=== PATIENT | female | born 1940 | race Caucasian/White ===

== ENCOUNTER → 2017-02-07 | Outpatient (CLI) | payer MEDICARE ==
[~2017-02-07] MED LIST: APIX5TAB2 PO; ASP325T PO; CALC-404 PO; FLEC100T PO; FLECAINIDE; GLUC1TAB60 PO; METO-270 PO; METO5AMP2 IV; MULT-608 PO; OMEG1CAP51 PO; PANT40TA2 PO; PROBIOTIC1 EACH PO; RIVA20TA4 PO; TRIA16.5 NS; WRF2T PO; WRF5T PO
--- OUTSIDE RECORDS SUMMARY | 2017-02-07 11:21 | XMS REPORT | Continuity of Care Document ---
Author Author [facility] Organization [facility] Address Unknown Phone Unavailable Care Team Providers Care Timber Management Technician Name Role Phone Karissa Rock PCP [phone] Source Comments Some departments are not documenting in the electronic medical record. If you do not see the information that you expected, contact Release of Information in the Health Information Management department at [phone] for further assistance in locating additional records.[facility] Active Allergies and Adverse Reactions No Known Allergies Current Medications Prescription Sig. Disp. Refills Start End Date Status Date MULTI-VITAMIN PO Take 1 Tab by mouth Active Daily. GLUC ABDULLAHI/CHONDRO ABDULLAHI A/VIT Take 1 Tab by mouth twice Active C/MN (GLUCOSAMINE 1500 daily. COMPLEX PO) Calcium-Cholecalciferol Take 1 Tab by mouth Twice Active (D3) (CALCIUM 600 + D) Daily. 600-125 mg-unit PO Tab hzhpa-2a-opy-epa-fish oil Take 1 Cap by mouth Active 1,000-1,400 mg cpDR daily. flecainide (TAMBOCOR) 100 TAKE ONE TABLET BY MOUTH 180 Tab 3 03/05/20 Active mg tablet TWICE A DAY 16 XARELTO 20 mg tab tablet TAKE ONE TABLET BY MOUTH 90 Tab 3 03/05/20 Active DAILY WITH DINNER 16 metoprolol (LOPRESSOR) 25 TAKE 1/2 TABLET BY MOUTH 90 Tab 3 03/05/20 Active mg tablet TWO TIMES A DAY 16 Active Problems Problem Noted Date Screening for cardiovascular condition 01/16/2012 Overview: A. 01/06/12. Myoview Stress, Dr Covington. : EF 66%. Baseline A-Fib persisted throughout the test. No significant ischemia or infarction on SPECT images. Gated images unreliable in light of underlying A fib. S/P cardiac pacemaker procedure 07/02/2011 Hyperlipidemia 07/02/2011 Pulmonary hypertension (HCC) 07/02/2011 Overview: A. 05/20/11. Documented on problem list of OV note by primary repairer controller tester, Dr Poe. Estimated PAP 40 mmHg. Aortic valve sclerosis 07/02/2011 Overview: A. 05/20/11. Documented on problem list of OV note by primary repairer controller tester, Dr Covington. No stenosis, mild aortic regurgitation. Bradycardia 01/18/2011 Paroxysmal atrial fibrillation (HCC) 08/27/2010 Overview: a. 08/22/10: Pt reported intermittent, rapid, irregular heart rate, some episodes lasting up to 1 hr. b. 08/23/10: 24 HR Holter placed by Dr Covington. Underlying rhythm sinus with multiple episodes of A Fib. Sinus harpal, HR 38, at 3 am, APC's and VPC's noted. c. 08/26/10: ER eval for rapid irregular rhythm. EKG documents A fib. Converted spontaneously prior to discharge. d. 08/27/10: Started on Warfarin by [facility] and Lopressor 12.[address] Covington. Pt advised to check pulse daily for bradycardia. E. 05/20/11. Pt requests anticoagulation management handled by MAC. Atrial flutter (HCC) 08/02/2010 Overview: A. 08/02/10: Atrial Flutter RFA--CavoTricuspid (Sub eustachian) Isthmus Ablation, SVT Ablation. 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 Respiratory Rate - - Height 1.74 m (5' 8.5") 08/28/2016 9:05 AM CDT Weight 64.864 kg (143 lb) 08/28/2016 9:05 AM CDT Body Mass Index 21.42 08/28/2016 9:05 AM CDT Oxygen Saturation 100% 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 Plan of Care Date Type Specialty Providers Description 03/04/2017 Appointment Cardiology Fidel Palm MD [address] [place] [address] [phone] (Fax) 03/04/2017 Appointment Cardiology Fidel Palm MD [address] [place] [address] [phone] (Fax) 06/04/2017 Appointment Cardiology Fidel Palm MD [address] [facility] [address] [place] [address] [phone] (Fax) Health Maintenance Due Date Last Done Comments Physical (Comprehensive) 1947 Exam Pertussis Vaccine 1952 Tetanus Vaccine 1958 Colorectal Cancer 1991 Screening Shingles Vaccine 2001 Osteoporosis Screening 2006 Prevnar/Pneumovax (#1) 2006 Influenza Vaccine 07/25/2017 Results from Last 3 Months DEVICE EVALUATION - REMOTE PPM (12/06/2016 11:47 AM) Component Value Range Generator Model # ADAPTA L ADDRL1 Generator Serial # [id number] Generator Implnat Date 01/18/2011 ALIX/EOL Indicator VVI/VOO 65 bpm Generator Funeral Driver Medtronic Generator Investigational No Wireless Generator No Device Type DDD-PM Atrial Lead Model # CAPSUREFIX NOVUS 5076-52cm Atrial Lead Serial # [id number] Atrial Lead Implant Date 01/18/2011 Atrial Lead Diaph. 10 Stimulation Atrial Lead Funeral Driver Medtronic Atrial Lead No Investigational Atrial Lead Fixation active fixation Atrial Lead Location right atrial appendage Atrial Lead Pin Connector IS1 Atrial Lead Polarity Bipolar RV Lead Model # CAPSUREFIX NOVUS 5076-58cm RV Lead Serial # [id number] RV Lead Implant Date 01/18/2011 RV Lead Diaph. 10 Stimulation RV Lead Funeral Driver Medtronic RV Lead Investigational No RV Lead Fixation active fixation RV Lead Location RV low septum RV Lead Pin Connector ICD IS1 Device Mode AAIR-DDDR Lower Rate Limit 70 Upper Rate Limit 130 Sensor Rate Limit 130 Pace AV Delay 180 Sense AV Delay 150 VT Monitor NA Mode Switch (bpm) 150-no delay High A Rate Detect >150 bpm with no delay High V Rate Detect >150 bpm at 5 beats Mode Switch Status On Device Implanted By Nuha Covington MD ( [facility]) Pacemaker Dependant Yes Next Programming Check 02/2017 Due Next Remote Check Due 11/2016 Date of Last Remote Check 06/21/16 Date of baseline remote 04/07/13 transmission Remote Monitoring? Yes HF Patient No Date of Last Programming 08/28/16 EP Device Followed by Dr. Palm Name EP Device Followed By [facility] Device [facility] Express Transmitter Compatible Narrative Current Monitoring Period: 11/29/16 through 02/26/17 [12/06/2016 11:47:41 AM - DOE COBURN] Scheduled Carelink transmission received. Device function appears normal. Events noted since 08/28/16: Atrial: None. Ventricular: None. Please see scanned data for further review as needed. Pt is scheduled to follow up on 03/04/17 with MPE at the OP Office.
--- NOTE | 2017-02-10 14:14 | Diagnostic Imaging Report ---
EXAMINATION: Bilateral screening mammogram with a Computer Aided Detection (CAD) system. INDICATION: Screening. PERSONAL HISTORY: No current complaints stated on the questionnaire. COMPARISON: 02/06/2016. FINDINGS: The breasts are composed of heterogeneously dense parenchyma which may decrease mammographic sensitivity. There is a pacemaker in the axillary tail of the left breast. Benign-appearing calcifications are seen in the right breast. Allowing for technique and positional differences, no suspicious change is seen. IMPRESSION: Dense breasts with no definite change. ACR BI-RADS Category 2: Benign findings. Result letter will be mailed to the patient. Note: At least 10% of breast cancer is not imaged by mammography. Dictated by: Dictated on workstation # [id number]
== END ==
LOC: RAD 11:17
PROVIDERS: ATTEND Internal Medicine
DX: Z12.31 Encounter for screening mammogram for malignant neoplasm of breast (principal)
CPT/HCPCS: 77067

== ENCOUNTER → 2017-06-26 | Outpatient (CLI) | payer MEDICARE ==
[2017-06-26 09:01] LABS: MEAN PLATELET VOLUME 8.9 FL (7.4-10.4); RED BLOOD COUNT 3.8 10^6/uL (4.35-5.85); RED CELL DISTRIBUTION WIDTH 15.2 % (10.0-14.5); WHITE BLOOD COUNT 9.3 10^3/uL (4.3-11.0)
== END ==
LOC: LAB 08:48
PROVIDERS: ATTEND Internal Medicine
DX: D64.9 Anemia, unspecified (principal)
CPT/HCPCS: 36415; 85027

== ENCOUNTER → 2017-07-11 | Outpatient (CLI) | payer MEDICARE ==
[~2017-07-11] MED LIST changes: -METO-270 PO; +METO-387 PO
[2017-07-11 13:48] LABS: BASOPHILS # (AUTO) 0.1 10^3/uL (0.0-0.1); BASOPHILS % (AUTO) 1 % (0-10); EOSINOPHILS # (AUTO) 0.1 10^3/uL (0.0-0.3); EOSINOPHILS % (AUTO) 1 % (0-10); LYMPHOCYTES # (AUTO) 1.6 X 10^3 (1.0-4.0); LYMPHOCYTES % (AUTO) 22 % (12-44); MEAN CORPUSCULAR HEMOGLOBIN 28 PG (25-34); MEAN CORPUSCULAR HGB CONC 32 G/DL (32-36); MEAN CORPUSCULAR VOLUME 88 FL (80-99); MEAN PLATELET VOLUME 9.3 FL (7.4-10.4); MONOCYTES # (AUTO) 0.6 X 10^3 (0.0-1.0); MONOCYTES % (AUTO) 8 % (0-12); NEUTROPHILS # (AUTO) 4.8 X 10^3 (1.8-7.8); NEUTROPHILS % (AUTO) 68 % (42-75); PLATELET COUNT 194 10^3/uL (130-400); RED CELL DISTRIBUTION WIDTH 14.9 % (10.0-14.5); RETICULOCYTE % 0.71 % (0.50-2.40); WHITE BLOOD COUNT 7.1 10^3/uL (4.3-11.0)
[2017-07-11 14:29] LABS: ANISOCYTOSIS SLIGHT; BAND NEUTROPHILS 1 %; BASOPHILS % (MANUAL) 1 %; EOSINOPHILS % (MANUAL) 2 %; LYMPHOCYTES % (MANUAL) 25 %; NEUTROPHILS % (MANUAL) 64 %
[2017-07-15 16:25] LABS: FOLIC ACID >24.0 NG/ML (1.5-24.0); IPF LEVEL 3.1 % (0.0-7.2)
[2017-07-15 16:26] LABS: %SAT TOTAL IRON BINDING CAPIC 8 L % (15-50); TIBC 274 L UG/DL (280-380); UIBC 251 UG/DL
== END ==
LOC: LAB 13:21
PROVIDERS: ATTEND Internal Medicine
DX: D64.9 Anemia, unspecified (principal)
CPT/HCPCS: 36415; 82607; 82746; 83540; 83550; 85007; 85027; 85045; 85055

== ENCOUNTER → 2017-07-24 | Outpatient (CLI) | payer MEDICARE ==
[~2017-07-24] MED LIST changes: +IOHEXOL 350 MG/ML 100 ML (OMNIPAQUE 350) VIAL IV ONE; +METO-270 PO; -METO-387 PO; +NS 100 ML (IVPB) BAG IV ONE
--- NOTE | 2017-07-24 15:42 | Diagnostic Imaging Report ---
PROCEDURE: CT chest, abdomen, and pelvis with and without contrast. TECHNIQUE: Precontrast images were obtained of the chest, abdomen, and pelvis. Multiple contiguous axial images were obtained through the chest, abdomen, and pelvis after administration of intravenous contrast. INDICATION: Fatigue and anemia. COMPARISON: There are no previous CT examinations available for comparison. FINDINGS: The images through the thorax show that the heart size is within normal limits. There is a dual-lead pacemaker in place on the left and the pacer leads seem to be in good position. There are coronary artery calcifications evident. The aorta is not abnormally dilated, and there is no sign of dissection. There is no defect within the pulmonary arteries to indicate a pulmonary embolus. The lungs are generally clear and well aerated. There is no sign of failure, pneumonia, or pleural effusion. There is no parenchymal lung mass identified. There is no mediastinal or hilar adenopathy. The thyroid gland is unremarkable. There is no obvious breast mass. The sections through the abdomen and pelvis show that the liver is homogeneous and not enlarged. The spleen, pancreas, adrenals, kidneys, gallbladder, aorta, and inferior vena cava are unremarkable for an acute abnormality. The stomach is not well distended and consequently difficult to assess. The images through the pelvis show that there are a few fluid-filled segments of small bowel present. These are nonspecific but may be related to a mild ileus, perhaps secondary to enteritis. There is no sign of bowel obstruction. The urinary bladder is grossly unremarkable. There is no pelvic mass or free fluid collection. The bone windows show no evidence for a fracture or for a destructive lesion. IMPRESSION: 1. The fluid in the small bowel is nonspecific. This finding could be secondary to a mild ileus, perhaps related to enteritis. Clinical followup is recommended. 2. There is no acute abnormality of the chest, abdomen, or pelvis noted otherwise. 3. There is a left-sided pacemaker in place. Coronary artery calcifications are also noted. Dictated by: Dictated on workstation # [id number]
== END ==
LOC: RAD 11:36
PROVIDERS: ATTEND Internal Medicine
DX: I25.10 Atherosclerotic heart disease of native coronary artery without angina pectoris (principal); Z95.0 Presence of cardiac pacemaker; R06.00 Dyspnea, unspecified; R53.83 Other fatigue
CPT/HCPCS: 71270; 74178

== ENCOUNTER → 2017-08-04 | Outpatient (CLI) | payer MEDICARE ==
[~2017-08-04] MED LIST changes: -IOHEXOL 350 MG/ML 100 ML (OMNIPAQUE 350) VIAL IV ONE; -NS 100 ML (IVPB) BAG IV ONE
== END ==
LOC: RT 16:10
PROVIDERS: ATTEND Internal Medicine
DX: R06.00 Dyspnea, unspecified (principal)
CPT/HCPCS: 94060; 94726; 94729

== ENCOUNTER → 2018-02-26 | Outpatient (CLI) | payer MEDICARE ==
[~2018-02-26] MED LIST changes: -METO-270 PO; +METO-387 PO
--- NOTE | 2018-02-27 11:43 | Diagnostic Imaging Report ---
INDICATION: Digital mammogram bilateral screening. This study was compared to the prior exams of 02/07/2017, 02/06/16 and 02/01/2015. At this time, there are no current complaints. The current study was also evaluated with a Computer Aided Detection (CAD) system. FINDINGS: The fibroglandular tissue in both breasts is dense. This does limit the sensitivity of this exam. Overall, there does not appear to have been any significant change when compared to the prior study. No primary or secondary sign of malignancy is noted. IMPRESSION: 1. There is no radiographic evidence for malignancy. 2. The pacemaker battery pack overlying the left pectoralis muscle seen previously is again evident and no different. ACR BI-RADS Category 1: Negative. Result letter will be mailed to the patient. Note: At least 10% of breast cancer is not imaged by mammography. Dictated on workstation # [id number]
== END ==
LOC: RAD 10:37
PROVIDERS: ATTEND Nurse Practitioner
DX: Z12.31 Encounter for screening mammogram for malignant neoplasm of breast (principal)
CPT/HCPCS: 77067

== ENCOUNTER → 2019-03-11 | Outpatient (CLI) | payer MEDICARE, OTHER ==
--- NOTE | 2019-03-12 12:46 | Diagnostic Imaging Report ---
Indication: Routine screening. Comparison is made with prior mammogram from 02/26/2018 and 02/07/2017. 2-D and 3-D bilateral screening mammography was performed with CAD. Both breasts are heterogeneously dense, limiting the sensitivity of mammography. Benign calcifications in the medial right breast appear stable. No mass or malignant-appearing microcalcifications are seen. Pacemaker battery pack left axilla is again noted. Impression: BI-RADS category 2 No mammographic features suspicious for malignancy are identified. ACR BI-RADS Category 2: Benign findings. Result letter will be mailed to the patient. Note: At least 10% of breast cancer is not imaged by mammography. Dictated by: Dictated on workstation # [id number]
== END ==
LOC: RAD 15:00
PROVIDERS: ATTEND Nurse Practitioner
DX: Z12.31 Encounter for screening mammogram for malignant neoplasm of breast (principal)
CPT/HCPCS: 77067

== ENCOUNTER → 2020-05-23 | Outpatient (CLI) | payer MEDICARE ==
[~2020-05-23] MED LIST changes: -METO-387 PO; +MTP25TSR PO
--- NOTE | 2020-05-23 13:18 | Diagnostic Imaging Report ---
INDICATION: Routine screening. COMPARISON: 03/11/2019 and 02/26/2018. TECHNIQUE: 2D and 3D bilateral screening mammography was performed with CAD. FINDINGS: Both breasts are heterogeneously dense, limiting the sensitivity of mammography. The parenchymal pattern is stable. Benign calcifications are stable. No dominant mass or malignant appearing microcalcifications are seen. A pacemaker battery pack in the left axilla is noted. IMPRESSION: No mammographic features suspicious for malignancy are identified. ACR BI-RADS Category 3: Probably benign findings. Result letter will be mailed to the patient. Note: At least 10% of breast cancer is not imaged by mammography. Dictated by: Dictated on workstation # [id number]
== END ==
LOC: RAD 09:49
PROVIDERS: ATTEND Internal Medicine
DX: Z12.31 Encounter for screening mammogram for malignant neoplasm of breast (principal)
CPT/HCPCS: 77063; 77067

== ENCOUNTER → 2021-05-31 | Outpatient (CLI) | payer MEDICARE ==
--- NOTE | 2021-05-30 17:52 | HISTORY AND PHYSICAL ---
DATE OF SERVICE: PANENDOSCOPY HISTORY AND PHYSICAL HISTORY OF PRESENT ILLNESS: The patient is an 81-year-old white female referred for consideration for panendoscopy due to history of anemia. Her hemoglobin was down to 11.7 on routine blood work on the for Dr. Rock. This compares to a hemoglobin of 13.1 one year ago. She also had mild thrombocytopenia with a platelet count of 134,000. White count was normal at 7.48 thousand with normal differential. She does report occasional bright red blood per rectum over the past 6 months that she has attributed to hemorrhoids. I performed colonoscopy on her last procedure in 03/2015 at which time she had no evidence for neoplasia and no diverticular disease. She reported no problems with the procedure. She has had no melena. She is at higher risk for GI bleeding due to the need for Xarelto for past history of paroxysmal atrial flutter and apparent also history of paroxysmal atrial tachycardia. She has no known history of CVA. PAST MEDICAL HISTORY: Other medical problems included irritable bowel syndrome and hypertension. PAST SURGICAL HISTORY: She has had no surgeries in the past six years per her report, she does have a past history of total abdominal hysterectomy in 1987, bunion surgery in 1988, rhinoplasty in 1989, vaginal prolapse and rectocele repair in 12/2008 and dental implants in 2012. FAMILY HISTORY: She is not aware of any family history for colon cancer. Her mother believes she did have Her's. Father of lung cancer with history of smoking. She had one grandfather, who of gastric cancer in 1949. SOCIAL HISTORY: She is retired, secondhand smoke exposure, but no personal smoking history and no alcohol intake. REVIEW OF SYSTEMS: CONSTITUTIONAL: Denies change in weight, night sweats, chills or fever. She is fully COVID vaccinated. PULMONARY: Denies cough, chest pain, wheezing or shortness of breath. CARDIOVASCULAR: Has had no recent problems with palpitations, syncope, presyncope, orthopnea, PND, pedal edema or dyspnea on exertion. GASTROINTESTINAL: As noted in the HPI. PHYSICAL EXAMINATION: GENERAL: Reveals a pleasant white female appeared to be in no acute distress. VITAL SIGNS: Blood pressure 130/80, weight is 151 pounds, little changed from six years ago, at which time she weighed 154.6 pounds. HEENT: Unremarkable other than mild pallor. CHEST: Clear to auscultation. CARDIOVASCULAR: Reveals a regular rate and rhythm without murmur, S3 or S4. ABDOMEN: Soft, supple without mass, organomegaly or tenderness. EXTREMITIES: Reveal no cyanosis, clubbing or edema. ASSESSMENT AND PLAN: The patient is being set up for panendoscopy due to anemia and history of intermittent bright red blood per rectum. She will hold Xarelto after Wednesdays' dose with procedure scheduled for Friday with instructions on when to resume based on findings. I thank you for the referral of this pleasant lady. Job ID: [id number] DocumentID: [id number] Dictated Date: 05/30/2021 15:02:00 Freight Loader Date: 05/30/2021 15:50:18 Dictated By: LORY KENDRICK MD MTDD
--- NOTE | 2021-05-31 19:48 | Diagnostic Imaging Report ---
INDICATION: Routine screening. COMPARISON: Prior mammograms from 05/23/2020 and 03/11/2019. EXAMINATION: 2D and 3D bilateral screening mammography was performed with CAD. The current study was also evaluated with a Computer Aided Detection (CAD) system. FINDINGS: Both breasts are heterogeneously dense, limiting the sensitivity of mammography. The parenchymal pattern is stable. No mass or malignant appearing microcalcifications are seen. Axillae are unremarkable. IMPRESSION: No mammographic features suspicious for malignancy are identified. ACR BI-RADS Category 2: Benign findings. Result letter will be mailed to the patient. Note: At least 10% of breast cancer is not imaged by mammography. Dictated by: Dictated on workstation # [id number]
== END ==
LOC: RAD 14:45
PROVIDERS: ATTEND Nurse Practitioner Family
DX: Z12.31 Encounter for screening mammogram for malignant neoplasm of breast (principal)
CPT/HCPCS: 77063; 77067

== ENCOUNTER → 2021-06-05 | Outpatient (CLI) | payer MEDICARE | LOC: LABNPT 08:38 | PROVIDERS: ATTEND Internal Medicine | DX: Z20.822 Contact with and (suspected) exposure to COVID-19 (principal) | CPT/HCPCS: 87635 ==

== ENCOUNTER 2021-06-06 05:33 | Outpatient (RCR) | payer MEDICARE ==
[~2021-06-06] VITALS: Ht 172.7 cm; Wt 68.6 kg
== END 2021-06-06 12:05 | disposition home or self-care (01) ==
LOC: PREOP 05:33
PROVIDERS: ATTEND Internal Medicine
DX: Z01.818 Encounter for other preprocedural examination (principal)

== ENCOUNTER → 2021-06-06 | Outpatient (CLI) | payer MEDICARE | LOC: LABNPT 07:32 | PROVIDERS: ATTEND Internal Medicine | DX: Z53.9 Procedure and treatment not carried out, unspecified reason (principal) | CPT/HCPCS: 87635 ==

== ENCOUNTER 2021-06-08 08:55 | Day surgery (SDC) | payer MEDICARE ==
[2021-06-08] VITALS (7 sets, daily range): BP systolic 78–141; BP diastolic 52–79
[2021-06-08] MEDS ORDERED: LACTATED RINGERS 1,000 ML IV STA (09:09)
[2021-06-08] MEDS ORDERED: LACTATED RINGERS 1,000 ML IV ONE (09:11)
[2021-06-08] MEDS ORDERED: LIDOCAINE JELLY 2% 6 ML SYRINGE MM PRN (09:15)
--- NOTE | 2021-06-08 10:04 | Pre-Op Note & Conscious Sedat ---
Pre-Operative Progress Note H&P Reviewed The H&P was reviewed, patient examined and no changes noted. Date H&P Reviewed: Jun 08, 2021 Time H&P Reviewed: 10:03 Conscious Sedation Pre-Proced ASA Score 3 For ASA 3 and 4: Consider anesthesia and medical clearance. Also, for patients with a history of failed moderate sedation consider anesthesia. Airway Lungs Heart ASA score ASA 1: a normal healthy patient ASA 2: a patient with a mild systemic disease (mid diabetes, controlled hypertension, obesity ASA 3: a patient with a severe systemic disease that limits activity (angina, COPD, prior Myocardial infarction) ASA 4: a patient with an incapacitating disease that is a constant threat to life (CHF, renal failure) ASA 5: a moribund patient not expected to survive 24 hrs. (ruptured aneurysm) ASA 6: a declared brain- patient whose organs are being harvested. For emergent operations, add the letter E after the classification Mallampati Classification Grade 2 Sedation Plan Analgesia, Amnesia, Plan communicated to team members, Discussed options with patient/fam, Discussed risks with patient/fam The patient is an appropriate candidate to undergo the planned procedure, sedation, and anesthesia. The patient immediately re-assessed prior to indication. LORY KENDRICK MD Jun 08, 2021 10:04
[2021-06-08] MEDS ORDERED: PROPOFOL INJECTION 50 ML IV ONE (10:24)
--- NOTE | 2021-06-08 12:23 | Anesthesia-General Post-Op ---
MAC Patient Condition Mental Status/LOC: Same as Preop Cardiovascular: Satisfactory Nausea/Vomiting: Absent Respiratory: Satisfactory Pain: Controlled Complications: Absent Post Op Complications Complications None Follow Up Care/Instructions Patient Instructions None needed. Anesthesiology Discharge Order Discharge Order Patient is doing well, no complaints, stable vital signs, no apparent adverse anesthesia problems. No complications reported per nursing. CASSANDRA DUGAN CRNA Jun 08, 2021 12:23
--- NOTE | 2021-06-08 16:27 | OPERATIVE REPORT ---
DATE OF SERVICE: PANENDOSCOPY SUMMARY Done for evaluation of iron deficiency anemia and occult positive blood. History of intermittent bright red blood per rectum. The patient was placed in the left lateral decubitus position. The endoscope was inserted in the oral cavity and under direct visualization, esophagus was intubated. Endoscope was passed down the esophagus through the stomach and then second portion of the duodenum. Careful inspection was made as the endoscope was withdrawn. FINDINGS: The proximal, mid and distal esophagus were unremarkable. There was no evidence for erosive esophagitis or Her's change. A small hiatal hernia is present. The cardia of the stomach was unremarkable. There are some patchy areas of 1 x 2 mm erythema involving a fair amount of the dependent portion of the fundus of the stomach, no ulceration was noted. No blood was noted in the fundus. Biopsies obtained and submitted for histopathology and Helicobacter evaluation. The pylorus and pyloric channel were unremarkable. Along the superior aspect of the duodenal bulb just distal to the pylorus, there was a small area of irritation and with a small amount of blood. There was no evidence for ulceration and did not have a typical appearance of vascular malformation. It was biopsied, cauterized and submitted for histopathology. The remainder of the duodenal bulb and second portion as well as proximal third portion of the duodenum were unremarkable with no other vascular appearing malformations or evidence for duodenitis. ASSESSMENT: 1. There was small area, inflammatory in appearance measuring about 3 x 4 mm in size involving the superior aspect of the duodenal bulb just distal to the pylorus with literally one drop of blood and no evidence for significant bleeding in the upper GI tract. It was biopsied, cauterized and submitted for histopathology. 2. There are some patchy areas of erythema confined to the dependent portion of the fundus compatible with gastritis. Biopsies were obtained and submitted for Helicobacter and histopathology. Small hiatal hernia was present without evidence for erosive esophagitis or Her's. We then proceeded with colonoscopy. DESCRIPTION OF PROCEDURE: Prior to undergoing colonoscopy, digital rectal evaluation was performed. Anal sphincter tone was normal. Perianal reflexes intact. No abnormalities were noted on digital inspection of anal canal or distal rectal vault. The colonoscope was then inserted into the rectum and under direct visualization advanced to cecum. The cecum was identified by identification of the ileocecal valve and cecal strap as well as appendiceal orifice. Photographic documentation was obtained. Careful inspection was made as colonoscope was withdrawn. Quality of prep was good. FINDINGS: One small grade I internal hemorrhoid was noted, nonthrombosed. No evidence for external hemorrhoids were noted. Several 1 to 2 mm hyperplastic appearing polyps were noted in the rectum. No other rectal abnormalities were noted. The sigmoid colon, descending colon, splenic flexure, transverse colon, hepatic flexure, ascending colon and cecum were unremarkable with no evidence for blood in the lower GI tract. ASSESSMENT: One small grade I, nonthrombosed internal hemorrhoid was noted. Several 1 to 2 mm hyperplastic appearing polyps were noted. Considering the patient's age, risk of removal, especially in an individual on blood thinning therapy outweighs the potential benefits, so they were left. She was advised to hold Xarelto for now. She has an appointment on the with Dr. Palm at and was advised to bring up the risk/benefit ratio. She is going to be at slightly higher risk for GI bleeding on anticoagulant therapy. If she is deemed to be of moderate to high risk for future stroke from GI perspective would certainly place her back on Xarelto or if no contraindications consider switch to Eliquis due to lower risk of GI bleeding. Job ID: [id number] DocumentID: [id number] Dictated Date: 06/08/2021 11:57:31 Gravel Inspector Date: 06/08/2021 16:26:27 Dictated By: LORY KENDRICK MD [facility]issa
--- NOTE | 2021-06-11 12:58 | HISTORY AND PHYSICAL ---
DATE OF SERVICE: PANENDOSCOPY HISTORY AND PHYSICAL HISTORY OF PRESENT ILLNESS: The patient is an 81-year-old white female referred for consideration for panendoscopy due to history of anemia. Her hemoglobin was down to 11.7 on routine blood work on the for Dr. Rock. This compares to a hemoglobin of 13.1 one year ago. She also had mild thrombocytopenia with a platelet count of 134,000. White count was normal at 7.48 thousand with normal differential. She does report occasional bright red blood per rectum over the past 6 months that she has attributed to hemorrhoids. I performed colonoscopy on her last procedure in 03/2015 at which time she had no evidence for neoplasia and no diverticular disease. She reported no problems with the procedure. She has had no melena. She is at higher risk for GI bleeding due to the need for Xarelto for past history of paroxysmal atrial flutter and apparent also history of paroxysmal atrial tachycardia. She has no known history of CVA. PAST MEDICAL HISTORY: Other medical problems included irritable bowel syndrome and hypertension. PAST SURGICAL HISTORY: She has had no surgeries in the past six years per her report, she does have a past history of total abdominal hysterectomy in 1987, bunion surgery in 1988, rhinoplasty in 1989, vaginal prolapse and rectocele repair in 12/2008 and dental implants in 2012. FAMILY HISTORY: She is not aware of any family history for colon cancer. Her mother believes she did have Her's. Father of lung cancer with history of smoking. She had one grandfather, who of gastric cancer in 1949. SOCIAL HISTORY: She is retired, secondhand smoke exposure, but no personal smoking history and no alcohol intake. REVIEW OF SYSTEMS: CONSTITUTIONAL: Denies change in weight, night sweats, chills or fever. She is fully COVID vaccinated. PULMONARY: Denies cough, chest pain, wheezing or shortness of breath. CARDIOVASCULAR: Has had no recent problems with palpitations, syncope, presyncope, orthopnea, PND, pedal edema or dyspnea on exertion. GASTROINTESTINAL: As noted in the HPI. PHYSICAL EXAMINATION: GENERAL: Reveals a pleasant white female appeared to be in no acute distress. VITAL SIGNS: Blood pressure 130/80, weight is 151 pounds, little changed from six years ago, at which time she weighed 154.6 pounds. HEENT: Unremarkable other than mild pallor. CHEST: Clear to auscultation. CARDIOVASCULAR: Reveals a regular rate and rhythm without murmur, S3 or S4. ABDOMEN: Soft, supple without mass, organomegaly or tenderness. EXTREMITIES: Reveal no cyanosis, clubbing or edema. ASSESSMENT AND PLAN: The patient is being set up for panendoscopy due to anemia and history of intermittent bright red blood per rectum. She will hold Xarelto after Wednesdays' dose with procedure scheduled for Friday with instructions on when to resume based on findings. I thank you for the referral of this pleasant lady. Job ID: [id number] DocumentID: [id number] Dictated Date: 05/30/2021 15:02:00 Glass Production Machine Operator Date: 05/30/2021 15:50:18 Dictated By: LORY KENDRICK MD <Dictated by LORY KENDRICK MD> <Electronically signed by LORY KENRDICK MD> 05/31/212010 [facility]
== END 2021-06-08 12:00 | disposition home or self-care (01) ==
LOC: ENDO 08:55
PROVIDERS: ATTEND Internal Medicine
DX: K63.5 Polyp of colon (principal); K29.50 Unspecified chronic gastritis without bleeding; D50.9 Iron deficiency anemia, unspecified; K64.0 First degree hemorrhoids; K31.89 Other diseases of stomach and duodenum; K44.9 Diaphragmatic hernia without obstruction or gangrene; I10 Essential (primary) hypertension; K58.9 Irritable bowel syndrome, unspecified; I48.91 Unspecified atrial fibrillation; Z79.01 Long term (current) use of anticoagulants
CPT/HCPCS: 88305

== ENCOUNTER → 2022-06-17 | Outpatient (CLI) | payer MEDICARE ==
--- NOTE | 2022-06-18 10:20 | Diagnostic Imaging Report ---
INDICATION: Bilateral digital 3-D screening with CAD CAD is utilized. The current study was also evaluated with a Computer Aided Detection (CAD) system. COMPARISON: 05/2020 and 02/2019 FINDINGS: Density 3. No breast mass, spiculated lesion, architectural distortion, suspicious calcifications or interval changes are found. No change in distribution of the heterogeneously dense fibroglandular elements. No findings to suggest malignancy. Pacemaker battery overlies the left axilla. IMPRESSION: BI-RADS Category 1 ACR BI-RADS Category 1: Negative. Result letter will be mailed to the patient. Note: At least 10% of breast cancer is not imaged by mammography. Dictated by: Dictated on workstation # [id number]
== END ==
LOC: RAD 10:43
PROVIDERS: ATTEND Nurse Practitioner Family
DX: Z12.31 Encounter for screening mammogram for malignant neoplasm of breast (principal)
CPT/HCPCS: 77063; 77067

== ENCOUNTER → 2023-06-11 | Outpatient (CLI) | payer MEDICARE ==
--- NOTE | 2023-06-11 11:40 | Diagnostic Imaging Report ---
INDICATION: Routine screening. Comparison is made with prior mammogram from 06/17/2022 and 05/31/2021. 2-D and 3-D bilateral screening mammography was performed with CAD. The current study was also evaluated with a Computer Aided Detection (CAD) system. Both breasts are heterogeneously dense, limiting the sensitivity of mammography. The parenchymal pattern is stable. Benign calcifications right breast are stable. No new mass or malignant-appearing microcalcifications are identified. Pacemaker battery pack overlies left axilla. Right axilla is unremarkable. IMPRESSION: BI-RADS Category 2 No mammographic features suspicious for malignancy are identified. ACR BI-RADS Category 2: Benign findings. Result letter will be mailed to the patient. Note: At least 10% of breast cancer is not imaged by mammography. Dictated by: Dictated on workstation # [id number]
== END ==
LOC: RAD 09:32
PROVIDERS: ATTEND Internal Medicine
DX: Z12.31 Encounter for screening mammogram for malignant neoplasm of breast (principal)
CPT/HCPCS: 77063; 77067

== ENCOUNTER 2023-10-30 09:15 | Emergency (ER) | payer MEDICARE ==
[~2023-10-30] VITALS: Ht 165 cm; Wt 70.0 kg
[2023-10-30 09:35] LABS: BASOPHILS # (AUTO) 0.1 10^3/uL (0.0-0.1); BASOPHILS % (AUTO) 1 % (0-10); EOSINOPHILS # (AUTO) 0.1 10^3/uL (0.0-0.3); EOSINOPHILS % (AUTO) 1 % (0-10); HEMATOCRIT 37 % (35-52); LYMPHOCYTES # (AUTO) 1.6 10^3/uL (1.0-4.0); LYMPHOCYTES % (AUTO) 17 % (12-44); MEAN CORPUSCULAR HEMOGLOBIN 31 pg (25-34); MEAN CORPUSCULAR HGB CONC 32 g/dL (32-36); MEAN CORPUSCULAR VOLUME 97 fL (80-99); MEAN PLATELET VOLUME 9.9 fL (9.0-12.2); MONOCYTES # (AUTO) 0.6 10^3/uL (0.0-1.0); MONOCYTES % (AUTO) 6 % (0-12); NEUTROPHILS % (AUTO) 75 % (42-75); PLATELET COUNT 141 10^3/uL (130-400); WHITE BLOOD COUNT 9.3 10^3/uL (4.3-11.0)
[2023-10-30 09:48] LABS: ALBUMIN 3.6 GM/DL (3.2-4.5)
[2023-10-30 09:49] LABS: POTASSIUM 4.2 MMOL/L (3.6-5.0)
[2023-10-30 09:50] LABS: CALCIUM 9.7 MG/DL (8.5-10.1)
[2023-10-30 09:51] LABS: TOTAL PROTEIN 7.2 GM/DL (6.4-8.2)
--- NOTE | 2023-10-30 09:51 | Diagnostic Imaging Report ---
PROCEDURE: CT head without contrast. TECHNIQUE: Multiple contiguous axial images were obtained through the brain without the use of intravenous contrast. Auto Exposure Controls were utilized during the CT exam to meet ALARA standards for radiation dose reduction. INDICATION: Acute onset headache and hypertension. CT HEAD: CT images of the head were obtained. FINDINGS: Ventricles and sulci are within normal limits for size. There is no intracranial hemorrhage identified. There is no abnormal mass effect or shift of midline structures. There is air-fluid level present within left maxillary sinus with mild mural thickening in ethmoid air cells. IMPRESSION: No acute intracranial abnormalities identified. Ethmoiditis and left maxillary sinusitis are present. Dictated by: Dictated on workstation # [id number]
[2023-10-30 09:53] LABS: BILIRUBIN,TOTAL 0.4 MG/DL (0.1-1.0)
--- NOTE | 2023-10-30 10:12 | ED Headache ---
General Chief Complaint: Head/Cervical Problems Stated Complaint: NEAR SYNCOPAL EPISODE Nursing Triage Note: ARRIVED VIA EMS FROM DR CHARLTON OFFICE WHICH IS CLOSED. PT WOKE UP WITH A HEADACHE AND HIGH BP. UPON ARRIVAL PT BP HAD DECREASED AND HEADACHE ALMOST GONE. PT ALSO COMPLAINED OF SOME MEMORY ISSUES DURING THIS TIME. Source: patient, EMS Exam Limitations: no limitations History of Present Illness Date Seen by Provider: Oct 30, 2023 Time Seen by Provider: 09:17 Initial Comments 83-year-old female presents via EMS for headache, hypertension. She states she had a headache when she woke up at 4:00 this morning. She felt as though her blood pressure was high so she checked it. She states it was 1 8190 systolic. She has been keeping a log of her blood pressures recently and they have been "all over the place." She is on flecainide, metoprolol and Xarelto for A-fib. She did have some lightheadedness prior to arrival. No syncope. No chest pain or shortness of breath. At present on arrival her blood pressure is down some and she states her headache is almost gone. She denies any upper or lower extremity weakness numbness or tingling. She did tell me that she noticed some memory issues yesterday while she was watching TV. She has a bunch of shortcuts programmed into her TV remote and cannot remember them. All other systems reviewed and negative except documented per HPI. Voice recognition software was used to help create this chart Allergies and Home Medications Allergies Coded Allergies: No Known Drug Allergies (Verified , 02/14/09) Patient Home Medication List Home Medication List Reviewed: Yes Calcium Carbonate/Vitamin D3 (Calcium 500 With Vitamin D Tab) 1 Each Tablet, 600 MG PO BID, (Reported) Entered as Reported by: VALENTINA CABELLO on 01/03/12 1041 Flecainide Acetate (Flecainide Acetate) 100 Mg Tablet, 100 MG PO BID, (Reported) Entered as Reported by: SANDY RIBEIRO on 05/22/16 0948 [id number]-[id number]-Jxlz 149-Hyal (Glucosamine Chondroitin Tablet) 1 Each Tablet, 1 EACH PO BID, (Reported) Entered as Reported by: VALENTINA CABELLO on 01/03/12 1041 Metoprolol Succinate (Metoprolol Succinate) 25 Mg Tab.er.24h, 12.5 MG PO BID, (Reported) Entered as Reported by: SANDY RIBEIRO on 05/22/16 0948 Multivitamins (Multiple Vitamin) 1 Tab Tablet, 1 TAB PO DAILY, (Reported) Entered as Reported by: VALENTINA CABELLO on 01/03/12 1041 [place]-3 Fatty Acids/Fish Oil (Fish Oil 1,000 Mg Softgel) 1 Each Capsule, 1 EACH PO DAILY, (Reported) Entered as Reported by: VALENTINA CABELLO on 01/03/12 1041 Pantoprazole Sodium (Protonix) 40 Mg Tablet.dr, 40 MG PO DAILY Prescribed by: ASMITA NARAYANAN on 05/24/16 1442 Review of Systems Review of Systems Constitutional: see HPI Past Zhcnivk-Xgppnc-Qmaijk Hx Patient Social History Tobacco Use?: No Substance use?: Yes Alcohol Use?: Yes Alcohol type: Beer Alcohol Frequency: Daily Seasonal Allergies Seasonal Allergies: No Past Medical History Surgeries: Yes (ANTERIOR REPAIR, BUNIONECTOMY BILAT) Respiratory: No Cardiac: Yes (PACEMAKER, A-FIB) Neurological: No 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 0.0oz. [id number]; 25.00 BMI Method:Stated General Appearance: WD/WN, no apparent distress HEENT: PERRL/EOMI, normal ENT inspection, TMs normal, pharynx normal Neck: non-tender Cardiovascular: regular rate, rhythm, no murmur Respiratory: chest non-tender, lungs clear, normal breath sounds, no respiratory distress, no accessory muscle use Gastrointestinal: normal bowel sounds, non tender, soft, no organomegaly Extremities: normal range of motion, non-tender, normal inspection, no pedal edema Psychiatric: alert, oriented x 3 Coordination/Gait: normal finger to nose, normal gait Motor/Sensory: no motor deficit, no sensory deficit Skin: normal color, warm/dry Progress/Results/Core Measures Results/Orders Lab Results Laboratory Tests Test 10/30/23 09:30 Range/Units White Blood Count 9.3 4.3-11.0 10^3/uL Red Blood Count 3.84 3.80-5.11 10^6/uL Hemoglobin 12.0 11.5-16.0 g/dL Hematocrit 37 35-52 % Mean Corpuscular Volume 97 80-99 fL Mean Corpuscular Hemoglobin 31 25-34 pg Mean Corpuscular Hemoglobin Concent 32 32-36 g/dL Red Cell Distribution Width 12.6 10.0-14.5 % Platelet Count 141 130-400 10^3/uL Mean Platelet Volume 9.9 9.0-12.2 fL Immature Granulocyte % (Auto) 0 % Neutrophils (%) (Auto) 75 42-75 % Lymphocytes (%) (Auto) 17 12-44 % Monocytes (%) (Auto) 6 0-12 % Eosinophils (%) (Auto) 1 0-10 % Basophils (%) (Auto) 1 0-10 % Neutrophils # (Auto) 7.0 1.8-7.8 10^3/uL Lymphocytes # (Auto) 1.6 1.0-4.0 10^3/uL Monocytes # (Auto) 0.6 0.0-1.0 10^3/uL Eosinophils # (Auto) 0.1 0.0-0.3 10^3/uL Basophils # (Auto) 0.1 0.0-0.1 10^3/uL Immature Granulocyte # (Auto) 0.0 0.0-0.1 10^3/uL Sodium Level 138 135-145 MMOL/L Potassium Level 4.2 3.6-5.0 MMOL/L Chloride Level 109 H 98-107 MMOL/L Carbon Dioxide Level 19 L 21-32 MMOL/L Anion Gap 10 5-14 MMOL/L Blood Urea Nitrogen 20 H 7-18 MG/DL Creatinine 1.19 0.60-1.30 MG/DL Estimat Glomerular Filtration Rate 46 BUN/Creatinine Ratio 17 Glucose Level 113 H 70-105 MG/DL Calcium Level 9.7 8.5-10.1 MG/DL Corrected Calcium 10.0 8.5-10.1 MG/DL Total Bilirubin 0.4 0.1-1.0 MG/DL Aspartate Amino Transf (AST/SGOT) 20 5-34 U/L Alanine Aminotransferase (ALT/SGPT) 13 0-55 U/L Alkaline Phosphatase 68 40-136 U/L Total Protein 7.2 6.4-8.2 GM/DL Albumin 3.6 3.2-4.5 GM/DL My Orders Orders - ANGÉLICA VALDES DO Comprehensive Metabolic Panel (10/30/23 09:23) Ekg Tracing (10/30/23 09:23) Cbc And Automated Diff (10/30/23 09:23) Ct Head Wo (10/30/23 09:23) Vital Signs/I&O 10/30/23 09:15 Temp 36.6 Pulse 74 Resp 16 B/P (MAP) 105/81 (89) Pulse Ox 97 O2 Delivery Room Air Blood Pressure Mean: 89 Comment Atrial flutter with a rate of 71 bpm. Normal intervals. Normal axis. No ST or T wave abnormalities. No ectopy. No STEMI. Departure Communication (Admissions) Patient is mildly hypertensive and her headache has resolved at the time. She has a log of her blood pressures at bedside and they are quite labile ranging anywhere from 180 systolic to 90 systolic. She is on flecainide, metoprolol for A-fib but does not take anything specifically prescribed for blood pressure. I am reluctant to start her on any blood pressure medications currently as again her blood pressures have been quite labile worse on her home readings. Advise she take her blood pressure cuff and her primary doctor to make sure it is well calibrated. 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 She states understanding. CT scan of her head is negative for any acute intracranial hemorrhage or other acute abnormalities. Her labs are reassuring. She is discharged home in stable condition. Impression Primary Impression: Headache Qualified Codes: R51.9 - Headache, unspecified Additional Impression: Hypertension Qualified Codes: I10 - Essential (primary) hypertension Disposition: HOME, SELF-CARE Condition: Stable Departure-Patient Inst. Referrals: EMETERIO MAN MD (PCP/Family) Primary Care Physician Add. Discharge Instructions: Your CT scan is negative for any obvious emergent condition. Your labs are reassuring. Please continue all medications as previously prescribed. Keep a log of your blood pressures twice a day and take them to your primary doctor within the next week for discussion of blood pressure management. Return to the emergency department for any severe concerns. All discharge instructions reviewed with patient and/or family. Voiced understanding. ANGÉLICA VALDES DO Oct 30, 2023 10:12
[2023-10-30 11:14] LABS: CREATININE SERUM 1.19 MG/DL (0.60-1.30)
[2023-10-30 11:42] VITALS: BP 162/65
== END 2023-10-30 11:42 | disposition home or self-care (01) ==
LOC: EDUNIT# 09:15 → ER 09:16
DX: I10 Essential (primary) hypertension (principal); I48.91 Unspecified atrial fibrillation; Z79.01 Long term (current) use of anticoagulants; Z79.899 Other long term (current) drug therapy; Z95.0 Presence of cardiac pacemaker
CPT/HCPCS: 36415; 70450; 80053; 85025; 93005